=== PATIENT | female | born 2000 | race American Indian/Alaskan Native ===

== ENCOUNTER 2018-04-06 19:52 | Emergency (ER) | payer MEDICAID ==
[2018-04-06] MEDS ORDERED: TYLENOL ONE (21:23)
[2018-04-06] MEDS ORDERED: NORCO 5/325 ONE (21:27)
[2018-04-06 21:32] VITALS: BP 134/103
[2018-04-06] MEDS ORDERED: NORCO 5/325 PO ONE (21:35)
--- NOTE | 2018-04-06 23:38 | Cat Scan Report ---
FINAL REPORT PROCEDURE: CT HEAD/BRAIN WO CON TECHNIQUE: Computerized tomography of the head was performed without contrast material. HISTORY: pain and swelling L eye, L cheek and L side of fac COMPARISON: No prior studies are available for comparison. FINDINGS: Skull and scalp: Normal. Paranasal sinuses: Normal. Ventricles and subarachnoid spaces: Normal. Cerebrum: No evidence of hemorrhage, acute infarction or mass . Cerebellum and brainstem: No evidence of hemorrhage, acute infarction or mass. Vasculature: Normal. Comments: None. IMPRESSION: Normal Examination
--- NOTE | 2018-04-06 23:41 | Cat Scan Report ---
FINAL REPORT PROCEDURE: CT FACIAL BONES WO CON TECHNIQUE: Computerized tomography of the facial bones and soft tissues with axial and coronal sections performed from the cranial aspect of the frontal sinuses to the caudal portion of the mandible without contrast material. HISTORY: pain and swelling L eye, L cheek and L side of fac COMPARISON: No prior studies are available for comparison. FINDINGS: Bones: No significant abnormality. Paranasal sinuses: Clear. Soft tissues: Slight soft tissue swelling over the left orbit and cheek region.. Other: None. IMPRESSION: There is no evidence of an acute fracture or dislocation of the facial bones. Mild soft tissue swelling of the left orbit and cheek region is noted.
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
== END 2018-04-07 02:58 | disposition home or self-care (01) ==
LOC: ED 19:52
DX: S00.81XA Abrasion of other part of head, initial encounter (principal); M79.652 Pain in left thigh; V47.5XXA Car driver injured in collision with fixed or stationary object in traffic accident, initial encounter; W22.11XA Striking against or struck by driver side automobile airbag, initial encounter; Y93.89 Activity, other specified; Y99.8 Other external cause status; Y92.410 Unspecified street and highway as the place of occurrence of the external cause
CPT/HCPCS: 36415; 70450; 70486; 84703